=== PATIENT | female | born 1995 | race Caucasian/White ===

== ENCOUNTER 2020-04-06 00:24 | Emergency (ER) | payer OTHER ==
[2020-04-06] MEDS ORDERED: Labetalol HCl 100 MG/20 ML VIAL ONE (00:39)
== END 2020-04-06 02:07 | disposition home or self-care (01) ==
LOC: ERS 00:24
DX: I10 Essential (primary) hypertension (principal); E87.5 Hyperkalemia; F41.9 Anxiety disorder, unspecified; Q74.3 Arthrogryposis multiplex congenita; Z79.899 Other long term (current) drug therapy
CPT/HCPCS: 96374

== ENCOUNTER 2020-04-13 17:07 | Emergency (ER) | payer OTHER ==
--- NOTE | 2020-04-13 17:50 | CT ---
CT BRAIN WITHOUT CONTRAST: 04/13/20 HISTORY: Headache. COMPARISON: None. FINDINGS: There is no acute hemorrhage or infarct. No midline shift or mass effect. Ventricular size and extra- axial CSF spaces are normal. The calvarium is intact. The paranasal sinuses and mastoids are clear. IMPRESSION: No acute intracranial abnormality. POS: HOME
[2020-04-13 18:08] LABS: #Eosinphils 0.1 thou/uL (0.0-0.7); #Lymphocytes 1.5 thou/uL (1.20-3.40); #Monocytes 0.6 thou/uL (0.11-0.59); %Basophils 0.5 % (0.0-1.0); %Eosinophils 1.1 % (0.0-10.0); %Lymphocytes 16.2 % (21.0-51.0); %Neutrophils 76.3 % (42.0-75.0); Hemoglobin 13.9 g/dL (12.0-16.0); Mean Corpuscular HGB CONC 31.8 g/dL (32.0-36.0); Mean Corpuscular Hemoglobin 28.1 pg (27.0-31.0); Mean Corpuscular Volume 88.3 fL (78.0-98.0); Mean Platelet Volume 9.6 fL (7.4-10.4); Platelet Count 222 thou/uL (130-400); RBC Distribution Width 12.2 % (11.5-14.5); Red Blood Cell (RBC) Count 4.96 mill/uL (4.20-5.40); White Blood Cell (WBC) Count 9.2 thou/uL (4.8-10.8)
[2020-04-13 18:11] LABS: BHCG - Serum Negative (NEGATIVE); Pregs Control Background? CLEAR/WHITE (CLR/WHITE); Pregs Control Bar Appear? YES (CONTROL BAR)
[2020-04-13] MEDS ORDERED: hydrALAZINE 20 MG/ML VIAL ONE (18:21)
[2020-04-13] MEDS ORDERED: diphenhydrAMINE 50 MG/ML VIAL ONE (18:21)
[2020-04-13 18:28] LABS: ALT (SGPT) 21 U/L (8-55); AST (SGOT) 27 U/L (5-34); Alkaline Phosphatase 99 U/L (40-110); Anion Gap 12 mmol/L (10-20); BUN (Urea Nitrogen) 15 mg/dL (7.0-18.7); Bilirubin, Total 0.3 mg/dL (0.2-1.2); Calc. Creatinine Clearance 0 mL/min (70-130); Calcium 8.9 mg/dL (7.8-10.44); Carbon Dioxide 21 mmol/L (22-29); Chloride 110 mmol/L (98-107); Estimated GFR-MDRD 90; Globulin 3.3 g/dL (2.4-3.5); Glucose 90 mg/dL (70-105); Potassium 4.7 mmol/L (3.5-5.1); Protein, Total 7.3 g/dL (6.0-8.3); Sodium 138 mmol/L (136-145)
[2020-04-13] MEDS ORDERED: Prochlorperazine 10 MG/2 ML VIAL IVP SCH (18:30)
--- NOTE | 2020-04-13 18:31 | RAD ---
CHEST ONE VIEW: 04/13/20 HISTORY: Chest pain. COMPARISON: Radiograph 04/05/20. FINDINGS: The lungs are clear. No pneumothorax or effusion. Cardiac silhouette and mediastinal contours are wi thin normal limits. No acute osseous abnormality. IMPRESSION: No acute intrathoracic abnormality. POS: HOME
--- NOTE | 2020-04-14 06:31 | CT ---
CT ANGIOGRAM CHEST WITH CONTRAST: HISTORY: Dyspnea. COMPARISON: Radiograph from the same day. TECHNIQUE: CT angiogram chest performed after the intravenous administration of contrast. Three-dimensional rend ering provided. FINDINGS: Delayed phase of contrast limits evaluation for distal embolism. No proximal segmental pulmonary stephanie rial filling defect. No pericardial effusion. No mediastinal adenopathy. The aortic contour is nonaneurysmal. Limited eval uation of the upper abdomen is unremarkable. The lungs are clear. No pneumothorax. No effusion. No co nfluent air space consolidation. No acute displaced rib fracture. The thoracic spine is intact as well as the sternum and manubrium. IMPRESSION: No pulmonary embolism or other acute intrathoracic abnormality. POS: HOME
== END 2020-04-13 22:58 | disposition home or self-care (01) ==
LOC: ERS 17:07
DX: I10 Essential (primary) hypertension (principal); R51 Headache; R00.0 Tachycardia, unspecified; F41.9 Anxiety disorder, unspecified; Z79.899 Other long term (current) drug therapy
CPT/HCPCS: 36415; 70450; 71045; 71275; 80053; 84484; 84703; 85025; 93005; 96361; 96374; 96375; J0360; J0780; J1200